=== PATIENT | female | born 1985 | race Two or more races ===

== ENCOUNTER 2024-11-19 22:02 | Emergency (ER) | payer MEDICAID, SELFPAY ==
[2024-11-19 22:03] VITALS: BMI 28.3
--- NOTE | 2024-11-19 22:34 | PD.EDSKIN ---
ED Skin Abcess FB-RME/HPI General Chief complaint: Skin/Abscess/Foreign Body Stated complaint: ITCHY ALL OVER BODY Time Seen by Provider: 11/19/24 22:28 Arrival date/time: 11/19/24 22:02 RME / HPI RME / HPI narrative: 39-year-old female patient came in for evaluation regarding multiple erythematous rashes, scattered all over, with itchiness and pruritus. Severity of symptoms moderate. Patient had the symptoms since 1 to 2 days. Patient denies any source of allergen. Denies any shortness of breath or difficulty swallowing. Denies any fever. Denies any other complaints no medications taken prior to arrival. Related Data Previous Rx's ?Medication ?Instructions ?Recorded diphenhydramine HCl 50 mg tablet 50 mg PO Q8H PRN allergic reaction 11/19/24 (Benadryl Allergy) #30 tabs prednisone 50 mg tablet 50 mg PO QDAY #7 tabs 11/19/24 Allergies Allergy/AdvReac Type Severity Reaction Status Date / Time No Known Allergies Allergy Unknown Verified 10/14/15 21:22 Review of Systems Review of Systems Narrative Review of Systems: Review of system reviewed and within normal limits except mentioned in HPI ED Exam Narrative Physical exam: VITAL SIGNS: Reviewed. GENERAL APPEARANCE: Alert and interactive, follows commands, no acute distress, HEAD AND FACE: Non-traumatic. ENT: PERRL, pink conjunctivitis, eyelid no trauma, Mucous membrane moist. NECK: Supple, nontender, no nuchal rigidity. CHEST: No tenderness, no crepitus, no paradoxical movement, no retractions. LUNGS: Clear, well ventilated, symmetric, no rales, no wheezing, no ronchi, no stridor, good breath sounds bilaterally. HEART: Regular rate, regular rhythm, no murmur, no gallops. ABDOMEN: Soft, positive bowel sounds, nondistended, no guarding, nontender, no rebound, no masses, RECTAL: Deferred. GENITAL: Deferred. NEUROLOGICAL: Gross motor function intact sensory function intact, Appropriate for age. MUSCULOSKELETAL: low back nontender, full range of motion. EXTREMITIES: Nontender, full range of motion. SKIN: Color pink, dry, + erythematous rash noted in the upper extremities and lower extremities, no lacerations, no abrasions, no contusions. LYMPHATICS: Deferred. Course Quality Measures none Orders Category Date Time Status Dexamethasone Inj [Decadron Inj] Med 11/19/24 22:32 Once 10 mg PO X1 ONE DiphenhydrAMINE [Benadryl] Med 11/19/24 22:33 Once 50 mg PO X1 ONE Famotidine [Pepcid] Med 11/19/24 22:32 Once 40 mg PO X1 ONE Skin / Abscess / Foreign Body MDM Narrative MDM Narrative:: 39-year-old female patient came in for evaluation regarding multiple erythematous rashes, scattered all over, with itchiness and pruritus. Severity of symptoms moderate. Patient had the symptoms since 1 to 2 days. Patient denies any source of allergen. Denies any shortness of breath or difficulty swallowing. Denies any fever. Denies any other complaints no medications taken prior to arrival. Patient received Benadryl, Pepcid and Decadron with significant improvement of symptoms. Patient appears nontoxic and hemodynamically stable .Decision to discharge the patient. The patient/family was given an opportunity to ask questions and understood their discharge instructions. Discharge instructions specifically included follow up provider and time frame, current and/or new medications and possible side effects, indications for sooner follow up or return to the emergency department, and the expected course of current diagnosis. Patient reports feeling better as well and giving evidence of significant clinical improvement, I believe patient is now a candidate for discharge. Patient data External records reviewed:: None Clinical information provided by:: patient Social determinants that could affect healthcare access:: none Patient has the following chronic illnesses:: None How is presenting disease/condition affected by chronic disease/condition?: exacerbated by Evaluation data The following diagnostics were reviewed and interpreted by me:: other (specify) (None) Lab and/or radiology exams considered but not ordered:: None Interpretation Summary: None Medications / Prescriptions Medications or Prescriptions considered but not ordered:: None Medication administrations:: Medication Administration History Dexamethasone Sodium Phosphate (Dexamethasone Sod Phos Inj 10 Mg/Ml Vial) 10 mg PO X1 ONE Stop: 11/19/24 22:33 Famotidine (Famotidine 20 Mg Tablet) 40 mg PO X1 ONE Stop: 11/19/24 22:33 Decadron Pepcid and Benadryl Consultations Consultation(s) initiated? (list below): No Diagnosis Skin/Abscess Differential Diagnosis: viral exanthem, urticaria and other (Allergic rash) Most likely diagnosis given after review of the tests above:: Allergic rash Admission Indicated Admission indicated?: not indicated Admission Request Was there a request for admission?: No Disposition Plan Disposition Plan: Discharge Discharge Attestation Discharge Attestation: The patient and all family members were given an opportunity to ask questions and understood the discharge instructions. Discharge instructions specifically effects, indications for sooner follow up or return to the emergency department, and the expected course of current diagnosis. Patient condition: Stable Discharge Plan Plan Patient Disposition: HOME (Self Care) Discharge Disposition comment: stable Prescriptions/Referrals Prescriptions/Med Rec: New Benadryl Allergy 50 mg tablet 50 mg PO Q8H PRN (Reason: allergic reaction) Qty: 30 0RF prednisone 50 mg tablet 50 mg PO QDAY Qty: 7 0RF Referrals: Temporary Provider,ED [Primary Care Provider, Emergency Medicine] - In 1 week Problem List Clinical Impression: Rash due to allergy Patient/Caregiver Discharge Instructions Discharge Activity: activity as tolerated Education Materials: Allergy Overview Additional Instructions: Thank you for the opportunity for serving you today. You are stable for discharged . You are advised to: Follow-up with your PCP in 1 to 2 days Return to ED for worsening of symptoms Increase oral fluids Take medication as prescribed Print Language: Latvian Stand Alone Forms: [employer] Award Info., Patient Portal Info Letter KATHRIN/DARRYL Supervising Physician KATHRIN/DARRYL Supervising Physician: MD Belkys
[2024-11-19 22:43] VITALS: BP 132/72; PULSE 82; RESP 18; TEMP 36.6; O2SAT 99
[2024-11-19] MEDS: FAMOTIDINE 20 MG TABLET 40 MG PO (22:43)
[2024-11-19] MEDS: DEXAMETHASONE SOD PHOS INJ 10 MG/ML VIAL PO (22:43)
== END 2024-11-19 22:47 | disposition home or self-care (01) ==
PROVIDERS: Emergency Provider Emergency Medicine; PCP Physician Assistant
DX: R21 Rash and other nonspecific skin eruption (principal)
CPT/HCPCS: 99283; J1100; A9270

== ENCOUNTER 2025-01-30 09:24 | Outpatient (AMB) | payer MEDICAID, SELFPAY ==
--- NOTE | 2025-01-30 09:45 | AMB.GYNCLNOT ---
Vital Signs 01/30/25 09:46 Height 1.6 m Height Method Stated Weight 75.296 kg Weight Measurement Method Standing Scale BMI 29.4 BP 109/75 Blood Pressure Source Automatic Cuff Blood Pressure Location Left Upper Arm Position Sitting Respiration 18 Pulse 81 Pulse Source Monitor Temp 97.2 F Temp Source Oral Pulse Oximetry (%) 98 Oxygen Delivery Method Room Air Allergies/Home Meds Allergies & Medications Allergies No Known Allergies Allergy (Unknown, Verified 01/30/25 09:48) Medication Reconciliation diphenhydramine HCl 50 mg tablet (Benadryl Allergy) 50 mg PO Q8H PRN allergic reaction #30 tabs 11/19/24 [Rx Confirmed 01/30/25] prednisone 50 mg tablet 50 mg PO QDAY #7 tabs 11/19/24 [Rx Confirmed 01/30/25] Intake Visit Data Collection New Patient or Established: Established Patient (seen at [facility] within 3 years) 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 Seen by Clinical Staff ONLY (RN/MA): No Paste Up Copy Camera Operator Required: Yes Paste Up Copy Camera Operator's name/title: ANDRE MONK Do You Feel Safe at Home: Yes Authorities Contacted: N/A PCP or OBGYN visit in last 3 months: Yes Date of Last PCP or OBGYN visit: 11/19/24 Hx Now: Yes Are you currently on any form of Control: No Last menstrual period: 01/05/25 Pain Present Currently: No Pain Scale Used: Castillo-[place]thing[place]/Numerical Pain scale:: 0 Smoking Status Smoking Status: Never smoker Immunizations Flu Vaccine in the Last 12 Months: No Flu Vaccine Exclusion Criteria: No Exclusion Criteria 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 Menstrual regularity: regular Flow: heavy Monthly: Yes How many days does period last: 5 Age at menarche: 11 Menopausal: No Currently sexually active: Yes NURSE STAFF INDUSTRIAL: Past Medical History Past Medical History: No Hx Neurological Disorders, No Hx Hypothyroidism, No Hx Hyperthyroidism, No Hx Breast Cancer, No Hx Cardiac Disorders, No Hx Hypertension, No Hx Blood Disorders, No Hx Anemia, No Hx Gastrointestinal Disorders, No Hx Renal Disease, No Hx Deep Vein Thrombosis, No Hx Diabetes Mellitus Type 1, No Hx Diabetes Mellitus Type 2, No Hx Tubal Ligation, No Hx Hysterectomy and No Psychiatric Problems Questionnaires Covid-19 Vaccine Questionnaire Has patient been vacinated for Covid-19 Have you been vacinated for Covid-19: Yes PHQ-9 PHQ-2 Over the last 2 weeks, how often have you been bothered by any of the following problems? 1. Little interest or pleasure in doing things: not at all 2. Feeling down, depressed, or hopeless: not at all Total score: 0 PHQ-9 3. Trouble falling or staying asleep, or sleeping too much: Not at all 4. Feeling tired or having little energy: Not at all 5. Poor appetite or overeating: Not at all 6. Feeling bad about yourself - or that you are a failure or have let yourself or your family down: Not at all 7. Trouble concentrating on things, such as reading the newspaper or watching television: Not at all 8. Moving or speaking so slowly that other people could have noticed? - Or the opposite - being so fidgety or restless that you have been moving around a lot more than usual: not at all 9. Thoughts that you would be better off or of hurting yourself in some way: Not at all Total score: 0 If you checked off any problems, how difficult have these problems made it for you to do your work, take care of things at home, or get along with other people?: not difficult at all Source: Developed by Drs. Vladimir Joshua, Umm Sharma, Zhao Dickerson and colleagues, with an educational ángel from [employer]. Depression screen completed yes Social History Living Situation History Marital Status: Single Lives With: Family Housing: House Tobacco History Smoking Status: Never smoker Second Hand Smoke Exposure: No Alcohol History Alcohol Intake: Never Domestic Abuse History Do You Feel Safe at Home: Yes History of Present Illness HPI Narrative Mari Yates presents for menorrhagia and possible hysterectomy consultation. The patient is experiencing heavy menstrual periods associated with an enlarged uterus and fibroid. She is currently being treated with meloxicam and tranexamic acid for her condition. She has a history of three prior sections. The patient has been taking meloxicam and tranexamic acid for her condition. She has an obstetric history of three prior sections. ROS: Negative except as stated above, limited to NURSE STAFF INDUSTRIAL and pertinent complaints. Exam General General Appearance: alert, in no apparent distress and healthy appearing Head Head exam: atraumatic Neck Neck exam: Present normal inspection and trachea midline Chest Chest inspection: Present normal inspection and symmetric chest wall rise External exam: Present normal external exam; Absent tenderness Neuro Neurological exam: Present oriented X3 Psych Psychiatric exam: Present normal affect and normal mood Office Procedures [facility] LOC & Office Proc's Nursing/Assessment Patient Status: Established Patient OB Clinic Nursing Assessment: Medication Reconciliation, Update PMH in EMR and Vital Signs OB Clinic Coordination of Care: Consent,records obtained, informed consent, Education Simp Pt/Fam, Lab and Imaging orders, Results/Orders obtained and Staff clarify orders Established Patient Charge Established Patient Point Assignment: 80 Established Patient Point Charge: EP Level 3 (80-115) Assessment & Plan Diagnosis / Problem List (1) Excessive and frequent menstruation with regular cycle: Status: Acute (2) Leiomyoma of uterus, unspecified: Status: Acute (3) Hypertrophy of uterus: Status: Acute Plan Menorrhagia with uterine enlargement and leiomyoma: - Patient presents with menorrhagia in the setting of significantly enlarged uterus measuring 10.8 cm in length, 6.5 cm AP, and 7.9 cm transverse with a 4 cm posterior uterine leiomyoma. - The combination of uterine enlargement and fibroid size makes medical management ineffective. - Surgical intervention is indicated as the most appropriate treatment option given the size constraints and symptom severity. Plan: - Hysterectomy via abdominal approach using existing section scar due to uterine and fibroid size precluding minimally invasive techniques. - Provide consent forms for patient to review and sign. - Submit surgical authorization to insurance for approval. - Schedule surgery date once insurance approval obtained. - Patient counseled on recovery expectations similar to section with approximately one month recovery time. - Patient encouraged to conduct own research and return with questions prior to surgery. - Follow-up appointment to be scheduled after insurance approval is obtained and surgery date is determined.
[2025-01-30 09:46] VITALS: BP 109/75; PULSE 81; RESP 18; TEMP 36.2; O2SAT 98; BMI 29.4
== END 2025-01-30 10:11 | disposition home or self-care (01) ==
LOC: HODSOBC 09:24
PROVIDERS: Supervising Provider Obstetrics & Gynecology; Visit Provider Obstetrics & Gynecology
DX: N92.0 Excessive and frequent menstruation with regular cycle (principal); D25.9 Leiomyoma of uterus, unspecified; N85.2 Hypertrophy of uterus
CPT/HCPCS: 99213; G0463